=== PATIENT | male | born 1950 | race Caucasian/White ===

== ENCOUNTER 2020-06-30 10:34 | Outpatient (CLI) | payer MEDICARE, SELFPAY ==
--- NOTE | ~2020-06-30 | PE_ITS ---
EXAMINATION: PET skull to mid thigh DATE: 06/30/2020 12:44 INDICATION: Pulmonary nodules. TECHNIQUE: Blood glucose level was 94 mg/dL. 10.945 mCi of 18-fluorodeoxyglucose (18-FDG) was adminis tered i.v. Low dose computed tomography (CT) images were acquired from the base of the brain to the p roximal thighs for attenuation correction and anatomic localization. Automated exposure control was e mployed. Dose-length product (DLP) was 443 mGy-cm. Positron emission tomography (PET) images were acq uired in the same distribution. COMPARISON: None FINDINGS: Head/neck: There are no pathologically enlarged lymph nodes. Chest: Calcified bilateral pulmonary nodules are consistent with old granulomatous disease. There is mild scarring at left lung apex. There is mild atelectasis bilaterally. There is a 6 mm nodule in lef t upper lobe without increased activity. There is mosaic attenuation in the lungs, likely small airwa ys disease. No pleural effusion. Cardiomegaly is noted. There are coronary artery calcifications. No pericardial effusion. There are changes of coronary artery bypass grafting. Abdomen/pelvis/proximal thighs: The liver and spleen are normal. There are gallstones in the gallblad carl, which is normal in size. There is a small sliding hiatal hernia. The pancreas, adrenal glands, a nd kidneys are normal. There are no dilated loops of bowel. The appendix is normal. There is divertic ulosis of the colon without evidence of diverticulitis. The prostate is mildly enlarged. There are no pathologically enlarged lymph nodes. There is no free intraperitoneal fluid. There is severe lumbar spondylosis. IMPRESSION: 1. 6 mm pulmonary nodule without increased activity, probably benign. Noncontrast low-dose chest CT i s recommended in 6 months. Reviewed, dictated and finalized at location A. IMPRESSION: 1. 6 mm pulmonary nodule without increased activity, probably benign. Noncontra st low-dose chest CT is recommended in 6 months.
[2020-06-30 10:58] LABS: Glucose Point of Care 94 (65-105)
== END 2020-06-30 10:35 | disposition home or self-care (01) ==
LOC: ANHIMG 10:41
PROVIDERS: PCP Internal Medicine; Visit Provider Internal Medicine
DX: R91.1 Solitary pulmonary nodule (principal)
CPT/HCPCS: 78815; 82948; A9552